=== PATIENT | female | born 1990 | race Caucasian/White ===

== ENCOUNTER → 2016-10-20 | Outpatient (CLI) | payer BC | END | disposition home or self-care (01) | LOC: LABWHC1 08:20 | PROVIDERS: ATTEND Obstetrics & Gynecology | DX: O20.0 Threatened abortion (principal); Z3A.00 Weeks of gestation of pregnancy not specified | CPT/HCPCS: 36415; 84702 ==

== ENCOUNTER 2019-07-02 15:09 | Outpatient (CLI) | payer BC ==
[2019-07-02 17:01] VITALS: BP 119/73; PULSE 93; RESP 16; TEMP 97
--- NOTE | 2019-07-15 11:19 | P.MSEPDOC ---
Presenting Problems - Arrival Data Date of Arrival on Unit: 07/02/19 Time of Arrival on Unit: 15:09 Mode of Transport: Ambulatory - Complaint OB-Reason for Admission/Chief Complaint: Headache, Visual Disturbances Comment: x 2 days Medical History - Information : 3 Para: 0 Term: 0 : 0 Abortions: Spontaneous or Elective: 2 Number of Living Children: 0 - Gestational Age Gestational Age by MAXIM (wks/days): 29 Weeks and 2 Days Review of Systems - Review of Systems Constitutional: No problems Breast: No problems ENT: No problems Cardiovascular: No problems Respiratory: No problems Gastrointestinal: No problems Genitourinary: No problems Musculoskeletal: No problems Neurological: No problems Skin: No problems Vital Signs - Temperature Temperature: 97.0 F Temperature Source: Temporal Artery Scan - Pulse Right Brachial Pulse Rate: 93 Pulse Assessment Method: Automatic Cuff - Respirations Respiratory Rate: 16 Oxygen Delivery Method: Room Air O2 Sat by Pulse Oximetry: 99 - Blood Pressure Right Arm Blood Pressure: 119/73 Blood Pressure Mean: 88 Blood Pressure Source: Automatic Cuff Medical Screen Scoring (Pre) - Cervical Exam Dilation: Exam Deferred Effacement: Exam Deferred Membranes: Intact - Uterine Contractions Frequency: N/A Duration: N/A Intensity: N/A - Maternal Vital Signs Maternal Temperature: N/A Maternal Blood Pressure: N/A Signs of Preeclampsia: N/A Maternal Respirations: N/A - Maternal Trauma Maternal Trauma: N/A - Assessment - Baby A Baseline FHR: 130 Heart Rate - NICHD Category: Category I (Normal) = 0 NST: Reactive Position: N/A - Total Score - Baby A Total Score - Baby A: 0 - Total Score - Baby B Total Score - Baby B: 0 - Total Score - Baby C Total Score - Baby C: 0 - Level of Risk - Baby A Level of Risk - Baby A: Low (0-5) - Level of Risk - Baby B Level of Risk - Baby B: Low (0-5) - Level of Risk - Baby C Level of Risk - Baby C: Low (0-5) Physician Notification (Pre) - Physician Notified Physician Notified Date: 07/02/19 Physician Notified Time: 16:01 New Order Received: Yes (d\c) - Notification Comment Comment: b/p wnl, orders to d\c instruction to orally hydrate avoid locked knees, tylenol for headache. If symptoms persist, call office for earlier appt. Disposition - Disposition OB Disposition: Triage, Discharge to home, Written follow up instructions reviewed Discharge Date: 07/02/19 Discharge Time: 16:06 I agree with the RN Medical Screening Exam: Yes Risk & Benefit of care provided described in d/c instruction: Yes Diagnosis: RELATED CONDITIONS, UNSPECIFIED, SECOND TRIMESTER
== END 2019-07-02 16:06 | disposition home or self-care (01) ==
LOC: FBPOP 15:09
PROVIDERS: ATTEND Obstetrics & Gynecology
DX: O26.92 Pregnancy related conditions, unspecified, second trimester (principal); Z3A.29 29 weeks gestation of pregnancy
CPT/HCPCS: 59025; 99213

== ENCOUNTER 2019-09-15 13:10 | Inpatient (IN) | payer BC ==
[2019-09-22] MEDS ORDERED: DINOPROSTONE 10 MG INSERT.ER VAGINAL ONE (16:43)
[2019-09-22] MEDS ORDERED: LACTATED RINGERS 1,000 ML IV SCH (16:43)
[2019-09-22] MEDS ORDERED: BUTORPHANOL 1 MG/ML 1 ML VIAL IV PRN (16:43)
[2019-09-22] MEDS ORDERED: OXYTOCIN 10 UNIT/ML 1 ML VIAL IM PRN (17:29)
[2019-09-22] MEDS ORDERED: METHYLERGONOVINE 0.2 MG/ML 1 ML AMP IM PRN (17:29)
[2019-09-22] MEDS ORDERED: TERBUTALINE 1 MG/ML VIAL SQ PRN (17:29)
[2019-09-22] MEDS ORDERED: LIDOCAINE 0.5% (PF) 5 MG/ML (50 ML SDV) SQ PRN (17:29)
[2019-09-22] MEDS ORDERED: CARBOPROST TROMETHAMINE 250 MCG/ML 1 ML AMP IM PRN (17:29)
--- NOTE | 2019-09-22 17:29 | P.HPOB ---
History of Present Illness H&P Date: 09/22/19 Chief Complaint: Postdates This is a 29-year-old 3 para 0020 woman with an estimated due date of 09/15/2019 based on LMP consistent with first trimester ultrasound who presents for postdates induction of labor at 41 weeks gestation. Her cervix is unfavorab le therefore she is admitted for Cervidil ripening with plans Pitocin tomorrow. She's had an uncomplicated . She is known Rh- negative and hypothyroid. Obstetric history significant for 2 first trimester miscarriages in and 2016. Laboratory data: Blood type A-, antibody screen negative, rubella immune, VDRL nonreactive, hep Padma surface antigen negative, gonorrhea and clinic cultures negative, HIV negative, group B strep culture negative, pharmacy testing negative, glucose tolerance testing within normal limits. Review of Systems All systems: negative Past Medical History Additional Past Medical History / Comment(s): SAB , 2015, 2016, hypothyroidism History of Any Multi-Drug Resistant Organisms: None Reported Smoking Status: Never smoker Medications and Allergies Home Medications Medication Instructions Recorded Confirmed Type No Known Home Medications 07/02/19 07/02/19 History Allergies Allergy/AdvReac Type Severity Reaction Status Date / Time No Known Allergies Allergy Verified 09/22/19 16:42 Exam Intake and Output 09/22/19 09/22/19 09/22/19 06:59 14:59 22:59 Other: Weight 73.936 kg This is a pleasant, visibly gravid female in no obvious distress. Targeted physical exam is performed. The abdomen is gravid with a fundal height of 39 cm. Estimated weight 7 pounds. On pelvic examination the cervix is posterior, 70% effaced and fingertip dilated. Cervidil is placed on her protocol. Vertex is in the -2 station. heart tones are category 1 and she is irregularly darek. Assessment and Plan (1) Post-dates Current Visit: Yes Status: Acute Code(s): O48.0 - POST-TERM SNOMED Code(s): 79007682 Plan: 29-year-old 3 para 0 woman admitted at 41 weeks gestation for cervical ripening prior to the induction of labor. Risks benefits and alternatives of this plan of care have been reviewed with the patient in the office setting and all questions are answered. status is currently reassuring by external monitoring. She is received Cervidil. The plan is for this to be removed and 12 hours on the with then the initiation of Pitocin induction of labor and artificial rupture of membranes. Pain control options have been reviewed with the patient.
[2019-09-22 17:47] LABS: Basophils % (A) 0 %; Eosinophils % (A) 1 %; HCT 33.3 % (34.0-46.0); HGB 11.6 gm/dL (11.4-16.0); Lymphocytes # (A) 1.4 k/uL (1.0-4.8); Lymphocytes % (A) 29 %; MCH 28.6 pg (25.0-35.0); MCHC 34.7 g/dL (31.0-37.0); MCV 82.4 fL (80.0-100.0); Mean Platelet Volume 10.3; Monocytes # (A) 0.2 k/uL (0-1.0); Monocytes % (A) 4 %; Neutrophils # (A) 3.2 k/uL (1.3-7.7); Neutrophils % (A) 62 %; Platelet Count 121 k/uL (150-450); RBC 4.04 m/uL (3.80-5.40); RDW 15.9 % (11.5-15.5); WBC 5.1 k/uL (3.8-10.6)
[2019-09-23] MEDS ORDERED: SIMETHICONE 80 MG CHEWABLE PO PRN (02:58)
[2019-09-23] MEDS ORDERED: LANOLIN CREAM 5 GM TUBE TOPICAL PRN (02:58)
[2019-09-23] MEDS ORDERED: diphenhydrAMINE 50 MG/ML 1 ML VIAL IVP PRN ×2 (02:58)
[2019-09-23] MEDS ORDERED: diphenhydrAMINE 25 MG CAP PO PRN (02:58)
[2019-09-23] MEDS ORDERED: ZOLPIDEM 5 MG TAB PO PRN (02:58)
[2019-09-23] MEDS ORDERED: WITCH HAZEL 1 EACH MED..PAD TOPICAL PRN (02:58)
[2019-09-23] MEDS ORDERED: diphenhydrAMINE 50 MG CAP PO PRN (02:58)
[2019-09-23] MEDS ORDERED: ACETAMINOPHEN TAB 325 MG TAB PO PRN (02:58)
[2019-09-23] MEDS ORDERED: HYDROCORTISONE 2.5% RECTAL CREAM 30 GM TUBE RECTAL PRN (02:58)
[2019-09-23] MEDS ORDERED: BENZOCAINE/MENTHOL SPRAY 1 GM/SPRAY AEROSOL TOPICAL PRN (02:58)
[2019-09-23] MEDS ORDERED: IBUPROFEN 600 MG TAB PO PRN (02:58)
--- NOTE | 2019-09-23 02:58 | P.PROBDLV ---
Vaginal Delivery Note - . Vaginal Delivery Note: Findings: Male infant in the vertex presentation with Apgars of 8 at 1 minute and 9 at 5 minutes weighing 7 lbs. 6 oz., 3340 g. Second-degree perineal laceration. Intact, three-vessel cord placenta. Terminal meconium. EBL 300 mL's. Delivery summary: This is a 29-year-old 3 para 0020 woman who is admitted at 41 weeks gestation for postdates induction of labor. She had an unfavorable cervix on admission therefore Cervidil was placed. She is not regularly darek on admission. Following placement of the Cervidil after several hours she began to have regular painful contraction activity. She was found to be 6 cm dilated at approximately 12:30 AM. The Cervidil was removed. She progressed to complete cervical dilation by approximately 2 AM. She commenced pushing with excellent maternal effort. When she was she was repositioned, prepped and draped in the modified Aaron position. With additional maternal effort the head did deliver from the left occiput anterior position. There was a nuchal cord 1 and terminal meconium. Of note at artificial rupture of membranes at 8 cm dilated fluid was noted to be clear. The anterior followed by the posterior shoulders were delivered without difficulty and the rest the infant was delivered onto the field. The nose and mouth were bulb suctioned and the was placed on the maternal abdomen. Apgars were 8 at 1 minute and 9 at 5 minutes and weight was 7 lbs. 6 oz. After the cord was clamped and cut and intact, three-vessel cord placenta was rapidly expressed. There was some light meconium staining of the membranes. The perineum was inspected and a second-degree laceration was noted. This was infused with lidocaine and repaired with 3-0 Vicryl in the usual fashion. The uterus was massaged and was noted to be firm at the level of the umbilicus. EBL was approximately 300 mL's. The rest the vagina and cervix were inspected and no further lacerations were noted. Both mother and were doing well post delivery in the room.
[2019-09-23] MEDS ORDERED: OXYTOCIN 20 UNITS/1000 ML NS 1,000 ML IV SCH (03:00)
[2019-09-23] MEDS: LACTATED RINGERS 1,000 ML IV SCH ×2 (03:13)
[2019-09-23] MEDS ORDERED: Rhogam IMMUNE GLOBULIN 1,500 UNIT/1 ML IM ONE (05:17)
[2019-09-23] MEDS ORDERED: OXYTOCIN 30 UNITS/500 ML NS 30 UNIT in SALINE 1 500ML.BAG IV SCH (06:15)
[2019-09-23] MEDS: SENNOSIDES-DOCUSATE SODIUM 1 EACH TAB PO SCH ×2 (08:08→20:44)
[2019-09-23 23:29] VITALS: RESP 18
[2019-09-24 05:59] LABS: Anisocytosis Slight; Basophils % (A) 0 %; Eosinophils # (A) 0.1 k/uL (0-0.7); Eosinophils % (A) 1 %; HCT 27.1 % (34.0-46.0); Lymphocytes # (A) 1.5 k/uL (1.0-4.8); Lymphocytes % (A) 26 %; MCH 28.5 pg (25.0-35.0); MCHC 33.8 g/dL (31.0-37.0); MCV 84.2 fL (80.0-100.0); Monocytes # (A) 0.2 k/uL (0-1.0); Monocytes % (A) 3 %; Neutrophils # (A) 3.7 k/uL (1.3-7.7); Neutrophils % (A) 67 %; Platelet Count 100 k/uL (150-450); RBC 3.21 m/uL (3.80-5.40); RDW 16.4 % (11.5-15.5); WBC 5.6 k/uL (3.8-10.6)
[2019-09-24 06:22] LABS: HGB 9.2 gm/dL (11.4-16.0)
[2019-09-24] MEDS: SENNOSIDES-DOCUSATE SODIUM 1 EACH TAB PO SCH (08:00)
--- NOTE | 2019-09-24 08:13 | P.DS ---
Providers Date of admission: 09/22/19 16:20 Expected date of discharge: 09/24/19 Attending physician: Makenna Davila Primary care physician: Stated None - Discharge Diagnosis(es) (1) Post-dates Current Visit: Yes Status: Acute (2) Nuchal cord Current Visit: Yes Status: Acute (3) Perineal laceration with delivery, second degree Current Visit: Yes Status: Acute (4) Rh negative, maternal Current Visit: Yes Status: Acute (5) Normal spontaneous vaginal delivery Current Visit: Yes Status: Acute Hospital Course: This is a 29-year-old 3 now para 10-1 woman who is admitted at 41 weeks gestation for postdates induction of labor. She had an unfavorable cervix the refore received Cervidil cervical ripening. The Cervidil did put her into spontaneous active labor area she received an epidural anesthetic and on eventually artificial rupture of membranes. She went on to have an uncomplicated delivery of a liveborn male infant over second-degree perineal laceration. There was terminal meconium and nuchal cord 1. Apgars were 8 at 1 minute and 9 at 5 minutes and weight was 7 lbs. 5 oz. Please see the delivery summary for details. The course was entirely unremarkable. By day #1 she was ambulating and voiding without difficulty. Her vital signs were stable. Her hemoglobin was 9.2. She had minimal to moderate lochia. She is breast-feeding successfully. She was therefore discharged home with routine instructions for care and follow-up. Procedures: Normal spontaneous vaginal delivery Patient Condition at Discharge: Good Plan - Discharge Summary New Discharge Prescriptions: No Action Pnv No.95/Ferrous Fum/Folic AC [ Multivitamin Tablet] 1 each PO DAILY Levothyroxine Sodium 25 mcg PO DAILY Iron 18 mg PO DAILY Discharge Medication List Iron 18 mg PO DAILY 09/22/19 [History] Levothyroxine Sodium 25 mcg PO DAILY 09/22/19 [History] Pnv No.95/Ferrous Fum/Folic AC [ Multivitamin Tablet] 1 each PO DAILY 09/22/19 [History] Follow up Appointment(s)/Referral(s): Makenna Davila MD [STAFF PHYSICIAN] - 6 Weeks Activity/Diet/Wound Care/Special Instructions: Follow-up in the office in 6 weeks . Call with any concerning signs or symptoms including heavy vaginal bleeding, severe abdominal pain, fever greater than 101, swelling or redness of the lower extremities, foul vaginal discharge, or signs of depression. Nothing in the vagina for 6 weeks after delivery, specifically no intercourse. Discharge Disposition: HOME SELF-CARE
[2019-09-24 09:15] VITALS: BP 122/75; PULSE 74; TEMP 98
== END 2019-09-24 10:15 | disposition home or self-care (01) | DRG 807 ==
LOC: 4FBP 09-22 16:20
PROVIDERS: ADMIT Obstetrics & Gynecology; ATTEND Obstetrics & Gynecology
PROC: 3E0P7VZ Introduction of Hormone into Female Reproductive, Via Natural or Artificial Opening (ICD-10-PCS; principal; 2019-09-22)
PROC: 0KQM0ZZ Repair Perineum Muscle, Open Approach (ICD-10-PCS; principal; 2019-09-22)
PROC: 10E0XZZ Delivery of Products of Conception, External Approach (ICD-10-PCS; principal; 2019-09-22)
PROC: 3E0234Z Introduction of Serum, Toxoid and Vaccine into Muscle, Percutaneous Approach (ICD-10-PCS; 2019-09-23)
DX: O48.0 Post-term pregnancy (principal); Z37.0 Single live birth; O69.81X0 Labor and delivery complicated by cord around neck, without compression, not applicable or unspecified; O77.0 Labor and delivery complicated by meconium in amniotic fluid; O99.284 Endocrine, nutritional and metabolic diseases complicating childbirth; E03.9 Hypothyroidism, unspecified; O70.1 Second degree perineal laceration during delivery; O26.893 Other specified pregnancy related conditions, third trimester; Z67.91 Unspecified blood type, Rh negative; Z3A.41 41 weeks gestation of pregnancy
CPT/HCPCS: 85025; 85461; 86850; 86870; 86880; 86900; 86901; 86902